=== PATIENT | female | born 1940 ===

== ENCOUNTER 2018-09-05 11:41 | Inpatient (IN) | payer OTHER ==
[~2018-09-05] VITALS: Ht 157.5 cm; Wt 58.5 kg
[2018-09-05] MEDS ORDERED: EFFEXOR XR75 MG PO (12:25)
[2018-09-05] MEDS ORDERED: CRESTOR10 MG PO (12:25)
[2018-09-05] MEDS ORDERED: TRAZODONE HCL150 MG PO (12:26)
[2018-09-13] MEDS ORDERED: PERCOCET 5-3251 EACH PO (16:16)
[2018-09-13] MEDS ORDERED: OMEPRAZOLE20 MG PO (16:16)
[2018-09-13] MEDS ORDERED: INTESTINEX680 M1 PO (16:16)
[2018-09-13] MEDS ORDERED: INTEGRA F CAPS1 EACH PO (16:16)
== END 2018-09-13 16:26 | disposition home or self-care (01) | DRG 331 ==
LOC: SURH 09-10 05:40 → O/R 09-10 05:40 → SURH 09-10 10:14
PROVIDERS: ADMIT Surgery
PROC: 0DJD8ZZ Inspection of Lower Intestinal Tract, Via Natural or Artificial Opening Endoscopic (ICD-10-PCS; 2018-09-10)
PROC: 0DTN4ZZ Resection of Sigmoid Colon, Percutaneous Endoscopic Approach (ICD-10-PCS; principal; 2018-09-10 10:45)
DX: K56.2 Volvulus (principal); K56.690 Other partial intestinal obstruction; E78.49 Other hyperlipidemia; D56.8 Other thalassemias; F41.8 Other specified anxiety disorders

== ENCOUNTER 2018-09-21 19:26 | Emergency (ER) | payer OTHER ==
[~2018-09-21] VITALS: Ht 157.5 cm; Wt 54.4 kg
[~2018-09-21 19:26] MED LIST: CRESTOR10 MG PO; EFFEXOR XR75 MG PO; INTEGRA F CAPS1 EACH PO; INTESTINEX680 M1 PO; OMEPRAZOLE20 MG PO; PERCOCET 5-3251 EACH PO; TRAZODONE HCL150 MG PO
== END 2018-09-21 23:16 | disposition home or self-care (01) ==
LOC: ER 19:26
DX: K29.60 Other gastritis without bleeding (principal); T40.2X5A Adverse effect of other opioids, initial encounter; Z98.890 Other specified postprocedural states; Y92.89 Other specified places as the place of occurrence of the external cause

== ENCOUNTER 2022-04-02 11:19 | Emergency (ER) | payer OTHER ==
[~2022-04-02] VITALS: Ht 157.5 cm; Wt 56.2 kg
== END 2022-04-02 15:44 | disposition home or self-care (01) ==
LOC: ER 11:19
DX: U07.1 COVID-19 (principal); Z88.2 Allergy status to sulfonamides; Z91.048 Other nonmedicinal substance allergy status

== ENCOUNTER 2022-04-03 15:17 | Outpatient (CLI) | payer OTHER | END 2022-04-03 16:38 | disposition home or self-care (01) | LOC: ASH CLINIC 15:17 | PROVIDERS: ATTEND Emergency Medicine | DX: U07.1 COVID-19 (principal) ==